=== PATIENT | male | born 1960 | race Caucasian/White ===

== ENCOUNTER → 2017-08-09 | Outpatient (CLI) | payer OTHER ==
[~2017-08-09] MED LIST: BOSW5TAB PO; IBUP-232 PO; OSTEOBIOFLEX PO
[2017-08-09 09:26] LABS: HEMATOCRIT 48.9 % (39.0-51.0); MEAN CELL VOLUME 86.4 FL (80.0-100.0); MEAN CORPUSCULAR HEMOGLOBIN 29.9 PG (27.0-34.0); MEAN CORPUSCULAR HGB CONC 34.6 % (32.0-36.0); PLATELET COUNT 210 TH/MM3 (150-450); RED BLOOD COUNT 5.65 MIL/MM3 (4.50-5.90); RED CELL DISTRIBUTION WIDTH 13.5 % (11.6-17.2); REVIEW FLAG FINAL; WHITE BLOOD COUNT 5.9 TH/MM3 (4.0-11.0)
[2017-08-09 09:33] LABS: APTT (PATIENT) 28.9 SEC (24.3-30.1); PROTHROMBIN TIME - PATIENT 10.2 SEC (9.8-11.6)
[2017-08-09 09:40] LABS: BLOOD, URINE NEG (NEG); COMMENT (UR) CULT NOT INDICATED; CULTURE IF INDICATED CULT NOT INDICATED; GLUCOSE,URINE NEG (NEG); KETONE, URINE NEG (NEG); NITRITE,URINE NEG (NEG); PH, URINE 6.5 (5.0-8.5); URINE COLOR YELLOW (YELLW/STRAW)
[2017-08-09 10:07] LABS: ANION GAP 6 MEQ/L (5-15); AST (GOT) 18 U/L (15-37); BICARBONATE 30.1 MEQ/L (21.0-32.0); BLOOD UREA NITROGEN 16 MG/DL (7-18); CHLORIDE 102 MEQ/L (98-107); GLOMERULAR FILTRATION RATE 69 ML/MIN (>89); GLUCOSE,FASTING 90 MG/DL (74-99); POTASSIUM 4.8 MEQ/L (3.5-5.1); SODIUM (NA) 138 MEQ/L (136-145)
[2017-08-09 10:09] LABS: ALT (GPT) 28 U/L (12-78)
[2017-08-09 10:10] LABS: ALKALINE PHOSPHATASE 94 U/L (45-117); TOTAL BILIRUBIN ADULT 0.7 MG/DL (0.2-1.0)
--- NOTE | 2017-08-09 17:55 | EKG ---
Date Performed: 08/09/2017 Time Performed: 08:23:56 PTAGE: 56 years EKG: Sinus rhythm Indeterminate axis Borderline ECG NO PREVIOUS TRACING DOCTOR: Don Garner Interpretating Date/Time 08/09/2017 17:54:24
== END ==
LOC: CPRE 08:00
PROVIDERS: ATTEND Surgery
DX: Z01.810 Encounter for preprocedural cardiovascular examination (principal); Z01.812 Encounter for preprocedural laboratory examination; Z01.818 Encounter for other preprocedural examination; R94.31 Abnormal electrocardiogram [ECG] [EKG]
CPT/HCPCS: 36415; 80053; 81001; 85027; 85610; 85730; 93005

== ENCOUNTER → 2017-08-15 | Day surgery (SDC) | payer OTHER ==
--- NOTE | 2017-08-11 16:12 | MH ---
cc: Duke PABLO M.D. DATE OF ADMISSION: 08/15/2017 PREOPERATIVE DIAGNOSIS Torn medial meniscus left knee, now for arthroscopy left knee. ADMISSION HISTORY AND PHYSICAL This is a pleasant 56-year-old male who is being admitted today for arthroscopy left knee due to torn medial meniscus. OTHER PAST HISTORY He has had his right knee scoped recently. Otherwise, the patient has no medical problems and only takes anti-inflammatories as needed. Currently had a bout with poison ainsley for which he has been on a Medrol Dosepak and it has cleared up. REVIEW OF SYSTEMS Noncontributory. FAMILY HISTORY Noncontributory. PAST SURGICAL HISTORY The only other surgery was removal of a nail from his right knee. SOCIAL HISTORY He does not smoke. Drinks occasionally. ALLERGIES No known allergies. PHYSICAL EXAMINATION GENERAL: We find a 56-year-old male, well-developed, well-nourished, oriented x3, complains of pain in his left knee. VITAL SIGNS: Blood pressure 120/74, pulse 87 and regular, respirations 15, temperature 98.2, pulse oximetry 97% on room air. HEENT: Eyes PERRLA, EOMI. Ears, nose, mouth clear. NECK: Supple. LUNGS: Clear. HEART: Regular rate. ABDOMEN: Soft. Positive bowel sounds and nontender. EXTREMITIES: Reveal his left knee to be tender along the medial joint surface. He is neurovascularly intact to his toes. IMPRESSION AT THIS TIME Torn medial meniscus, left knee. PLAN Admission for arthroscopy left knee today. The patient understands the procedure well and states he has pain medicine at home. Duke Pablo MD JRCassidy/TLL /3:37 PM /3:46 PM
[~2017-08-15] VITALS: Ht 172.7 cm; Wt 77.6 kg
[~2017-08-15] MED LIST changes: +ACETAMINOPHEN/HYDROcodone 325 MG/5 MG TAB PO PRN; +BUPIVACAINE HCL PF 0.25% 30 ML VIAL ONE; +CHLORHEXIDINE GLUCONATE 2 % 1 PACK (2 CLOTHS) TOPICAL PRN; +CHLORHEXIDINE GLUCONATE 4% SOLN 120 ML BTL TOPICAL SCH; +DEXAMETHASONE SOD PHOS 4 MG/ML VIAL ONE; +DO NOT ADM ANY ANTICOAGULANT DRUGS PRN; +KETOROLAC TROMETHAMINE 30 MG/ML (IVP) VIAL IV PUSH ONE; +LACTATED RINGER'S 1000 ML IV PRN; +LIDOCAINE HCL 1% PF 5 ML SYRINGE OTHER ONE; +MEPERIDINE HCL 50 MG/ML VIAL IM PRN; +METOPROLOL TARTRATE 25 MG TAB PO PRN; +ONDANSETRON HCL 4 MG/2 ML VIAL IV ONE; +ONDANSETRON ODT 4 MG TAB PO PRN; +POVIDONE IODINE 5% (ANTISEPSIS KIT) 4 APPLICATIONS EACH NARE PRN; +PROPOFOL 200 MG/20 ML AMP IV ONE; +SODIUM CHLORID 0.9% 500 ML IV PRN
[2017-08-15] MEDS: ceFAZolin 2 GM PREMIX 50 ML IV SCH ×2 (13:25→13:56)
--- NOTE | 2017-08-15 14:34 | HHI.PR ---
Immediate Post Op Note Procedure Date: Aug 15, 2017 Pre Op Diagnosis: Torn medial meniscus left knee Post Op Diagnosis: Torn medial meniscus left knee Surgeon: Duke Pablo MD Manager Home Healthcare(s): [facility] D[facility] Procedure: Left Knee Arthroscopy Estimated blood loss: 10cc Anesthesia: General Drains: None IVF Urinary Output (mLs): 0 (no blackwood) Tourniquet time (min at mmHg) none Patient to: PACU Patient Condition: Good Implant/Devices: SEE IMPLANT LOG (if applicable) Date/Time of Procedure: SEE SURGICAL CARE RECORD Rosa Maria Elizabeth Aug 15, 2017 14:34
[2017-08-15 15:25] VITALS: BP 162/78; PULSE 91; RESP 18; TEMP 97.6; O2SAT 98
--- NOTE | 2017-08-15 16:05 | MP ---
cc: Duke ORTEGA M.D. DATE OF SURGERY 08/15/2017 PREOPERATIVE DIAGNOSIS Torn medial meniscus, left knee. POSTOPERATIVE DIAGNOSIS Torn medial meniscus, left knee. SURGERY PERFORMED Arthroscopy and excision of torn medial meniscus, left knee. SURGEON Dr. Ortega. TECHNICAL SALES ADVISOR HARDY Irizarry ANESTHESIA LMA. PROCEDURE The patient was brought to the operating room and placed on the operating room table in the supine position. After successful induction of general anesthesia, the patient's left leg was prepped and draped in the usual manner. The knee was then placed in a knee villarreal and tightened. Arthroscopic examination was then performed by making a stab wound over the proximal superior and medial aspect of the patellofemoral joint for insertion of the inflow cannula and fluid, followed by stab wounds over the medial and lateral joint margins respectively for insertion of the arthroscope, shaver and probe. Arthroscopic examination was then performed which revealed intact lateral compartment, intact anterior cruciate ligament, intact patellofemoral joint. The medial compartment was found to have a large tear on the medial side of the medial meniscus and posterior horn. This was removed using ArthroCare cutter, shaver and probe to afford a smooth surface. The rest of the knee joint was found to be intact. The wound was irrigated copiously with lactated Ringer's solution. Excess fluid was removed. 10 cc of 0.25% Marcaine plain with 2 cc of Decadron was inserted into the knee joint. The skin was approximated with interrupted 3-0 nylon suture. Wet and then dry dressing was applied to the wound followed by Xeroform gauze, sterile dressing and thigh-high Roman wrap. No tourniquet was utilized. Estimated blood loss was 5 cc. Sponge and suture counts were correct. The patient tolerated the procedure well and left the operating room in satisfactory condition. HARDY Irizarry was present during the entire procedure to include patient positioning and the procedure. The medical necessity of the nurse practitioner business development assistant was indicated this case due to the surgical complexity of the case itself. During the surgical case the surgical nurse practitioner was working the back table while my hand frame surgical elastic knitter HARDY was directly assisting me. J. MD YASIR Cabral/THALIA /2:13 PM /3:51 PM
== END | disposition home or self-care (01) ==
LOC: HSDC 10:37
PROVIDERS: ATTEND Surgery
DX: S83.242A Other tear of medial meniscus, current injury, left knee, initial encounter (principal)
CPT/HCPCS: 01400; 29881; J0690; J1100; J1885; J2405; J3010; J7120